=== PATIENT | female | born 2000 | race Caucasian/White ===

== ENCOUNTER 2022-05-06 18:43 | Observation (INO) | payer BC, SELFPAY ==
--- NOTE | ~2022-05-06 | US_ITS ---
EXAMINATION: US OB follow up DATE: 05/07/2022 07:32 INDICATION: Immature rupture of membranes. Assess amniotic fluid index. TECHNIQUE: Real-time ultrasound of the pelvis was performed. The interpreting radiologist was not pre sent for the study. COMPARISON: None. FINDINGS: There is a single living fetus in vertex presentation. The placenta is anterior. heart rate is 153 beats per minute (bpm). Amniotic fluid volume still appears subjectively normal. A formal amniot ic fluid index was not performed by the profile shaper operator. Measurements made on the transverse and images y ield an amniotic fluid index in the current study of 7.4 cm. Similar measurements made on the prior s tudy yield a corresponding amniotic fluid index of 12.0 cm. Cervical length measures 4.1 cm. IMPRESSION: 1. Single living fetus in vertex presentation with heart rate of 153 bpm. 2. Amniotic fluid appears both subjectively and quantitatively decreased with decrease in amniotic fl uid index from 12.0 cm to currently 7.4 cm (5th%-95%: 7.9-18.5 cm at 16 weeks estimated gestational a ge). Reviewed, dictated and finalized at location A. IMPRESSION: 1. Single living fetus in vertex presentation with heart rate of 153 bpm. 2. Amniotic fluid appears both subjectively and quantitatively decreased with d ecrease in amniotic fluid index from 12.0 cm to currently 7.4 cm (5th%-95%: 7.9 -18.5 cm at 16 weeks estimated gestational age).
--- NOTE | ~2022-05-06 | US_ITS ---
EXAMINATION: US OB follow up DATE: 05/06/2022 20:21 INDICATION: Spontaneous rupture of membranes at unknown gestational age. Assess viability, gest ational age and cervical length. TECHNIQUE: Real-time ultrasound of the pelvis was performed. The interpreting radiologist was not pre sent for the study. COMPARISON: None. FINDINGS: There is a single living fetus in variable presentation. The placenta is anterior. heart rate is 158 beats per minute (bpm). The amniotic fluid volume is subjectively normal. Cervical length kerrie ures 3.7 cm. The following biometric data were obtained: BPD: 3.1 cm -> 15 weeks 5 days Head circumference: 11.2 cm -> 15 weeks 3 days Abdominal circumference: 10.8 cm -> 16 weeks 5 days Femur length: 1.8 cm -> 15 weeks 3 days These measurements are concordant. Head circumference to abdominal circumference ratio: 1.03 (normal range 1.06-1.35). Estimated weight: 142 g (+/-) 21 g or 5 oz. (+/-) 1 oz. IMPRESSION: 1. Single living fetus in variable presentation with heart rate of 159 bpm. 2. Gestational age by ultrasound of 15 weeks 6 day(s) +/- 1 week(s) 1 day(s) with ultrasound estimate d date of delivery (HERMILA) of 10/22/2022. Please correlate with clinical information or earlier ultrasoun ds for most accurate HERMILA. 3. Subjectively normal amniotic fluid index and normal cervical length of 3.7 cm. 4. Head circumference to abdominal circumference ratio of 1.03 is slightly below the normal range of 1.06-1.35. Reviewed, dictated and finalized at location A. IMPRESSION: 1. Single living fetus in variable presentation with heart rate of 159 bp m. 2. Gestational age by ultrasound of 15 weeks 6 day(s) +/- 1 week(s) 1 day(s) wi th ultrasound estimated date of delivery (HERMILA) of 10/22/2022. Please correlate wi th clinical information or earlier ultrasounds for most accurate HERMILA. 3. Subjectively normal amniotic fluid index and normal cervical length of 3.7 c m. 4. Head circumference to abdominal circumference ratio of 1.03 is slightly belo w the normal range of 1.06-1.35.
[2022-05-06 18:08] VITALS: BP 155/91; PULSE 89; RESP 16; TEMP 36.6; O2SAT 100
--- NOTE | 2022-05-06 18:39 | PC.NURSE ---
patient evaluated by EDP and EDP requests that patient be taken directly to OB at this time for evaluation. OB contacted and patient taken to OB by wheelchair at this time.
--- NOTE | 2022-05-06 18:43 | OBADM ---
This patient, Mary Robins, admitted to the OB room OB Post 116 for observation. Patient/family oriented to hospital policies and general routines including ID bracelet, bed and alarms, visiting hours, pain management, procedures, bathroom and other care routines, personal items, smoking policy, room service/diet, and visiting hours. Patient/Family are encouraged to report perceived risks to care and to ask questions if they do not understand what they are told or what they should do.
--- NOTE | 2022-05-06 18:48 | ER_ITS ---
This report was moved to the correct visit on 05/10/22. Original report was signed by Naomi Paige MD 05/08/22 [id number]. HPI - General Adult General Chief complaint: Unspecified Stated complaint: OB Complications Time Seen by Provider: 05/06/22 18:09 History of Present Illness HPI narrative: Patient is a 21-year-old female at approximately 20 weeks gestation presenting with abdominal pressure. Patient states that her last period was a couple of months ago but she always has irregular periods. She was seen at another facility several weeks ago and told that she was between 15 and 20 weeks gestation. She has not followed up with ELEVATOR MECHANIC APPRENTICE since then. Today, she had some vaginal spotting followed by vaginal discharge. States that she is concerned that her water broke. States that she also has lower abdominal pressure. She has fevers, chest pain, shortness of breath, nausea or vomiting, dysuria, lightheadedness. Related Data Allergies Allergy/AdvReac Type Severity Reaction Status Date / Time No Known Allergies Allergy Verified 05/06/22 20:09 Review of Systems Review of Systems: All systems reviewed & are unremarkable except as noted in HPI and below Exam Narrative: GENERAL: Well-appearing, well-nourished, and in no acute distress. HEAD: Normocephalic, atraumatic. EYES: PERRLA and EOMI. ENT: Nares clear, no rhinorrhea or epistaxis. Mucous membranes moist. NECK: Supple. CHEST: Clear to auscultation. No respiratory distress. HEART: Regular rate and rhythm. No murmur heard. Normal peripheral pulses. ABDOMEN: Soft, nontender, nondistended, normal active bowel sounds. : no vaginal bleeding, cervix is closed on digital exam EXTREMITIES: Normal range of motion. No edema. SKIN: Warm, dry, no rash. NEURO: No focal deficits. Alert and oriented x3. PSYCH: Normal mood and affect. Course Course Emergency Course: Patient is a 21-year-old female at approximately 20 weeks gestation presenting with abdominal pressure and loss of fluids. Patient is hypertensive, otherwise vitals are within normal limits. Patient denies headache, vision changes, right upper quadrant pain. Bedside ultrasound reveals intrauterine fetus with positive cardiac activity. exam reveals a closed cervix. Concern for PPROM given her report of loss of fluids. Patient escorted to E[facility]ATOR MECHANIC APPRENTICE department for further management. Vital Signs Vital signs: Vital Signs Temperature 97.8 F 05/06/22 18:08 Pulse Rate 89 05/06/22 18:08 Respiratory Rate 16 05/06/22 18:08 Blood Pressure 155/91 H 05/06/22 18:08 Pulse Oximetry 100 05/06/22 18:08 Oxygen Delivery Room Air 05/06/22 18:08 Temperature 97.8 F 05/06/22 18:08 Pulse Rate 89 05/06/22 18:08 Respiratory Rate 16 05/06/22 18:08 Blood Pressure 155/91 H 05/06/22 18:08 Pulse Oximetry 100 05/06/22 18:08 Oxygen Delivery Room Air 05/06/22 18:08 Medical Decision Making Vital Signs Vital Signs: Vital Signs Temperature 97.8 F 05/06/22 18:08 Pulse Rate 89 05/06/22 18:08 Respiratory Rate 16 05/06/22 18:08 Blood Pressure 155/91 H 05/06/22 18:08 Pulse Oximetry 100 05/06/22 18:08 Oxygen Delivery Room Air 05/06/22 18:08 Temperature 97.8 F 05/06/22 18:08 Pulse Rate 89 05/06/22 18:08 Respiratory Rate 16 05/06/22 18:08 Blood Pressure 155/91 H 05/06/22 18:08 Pulse Oximetry 100 05/06/22 18:08 Oxy
[2022-05-06 18:52] VITALS: TEMP 36.7
--- NOTE | 2022-05-06 19:00 | PC.NURSE ---
FHT doppled at bedside 150's BPM
--- NOTE | 2022-05-06 19:12 | PC.NURSE ---
In wc to OB with ED RN.
[2022-05-06 19:16] VITALS: BP 104/60; PULSE 87
--- NOTE | 2022-05-06 19:23 | PC.NURSE ---
Updated Dr. Laguerre of patient arrival to OB unit with complaints of pelvic pressure and loss of clear colored fluid intermittently throughout the day. Patient states she has irregular periods and is unable to remember when her last period was. Patient reports an bedside ultrasound was performed at [facility] on 04/16/2022 to verify . Patient states that no due date was provided at that time and they states she was between 15-20 weeks . Patient states she is a with the first delivering at 39weeks. Patient denies any vaginal bleeding. Patient reports history of anxiety and psychosis resulting in hospitalization for self harm. Patient denies any thoughts of harm to herself or others at the present time. VSS. ROM plus was collected and positive for LOF. Orders received.
[2022-05-06 19:31] VITALS: BP 114/75; PULSE 96
[2022-05-06 19:33] LABS: Add Urine Microscopic? YES; Appearance Urine Cloudy (Clear); Bacteria Urine Trace /hpf; Bilirubin Urine Negative (Negative); Blood Urine Negative (Negative); Color Urine Yellow (Yellow); Glucose Urine UA Negative (Negative); Ketones Urine 1+ mg/dL (Negative); Leukocyte Esterase Ur 1+ LEU/UL (Negative); Mucus Urine Few /lpf; Nitrate Urine Negative (Negative); Protein Urine Negative (Negative); Squamous Epithelial Cell Urine Many /hpf (Few); Urobilinogen Urine Negative mg/dL (<2.0)
[2022-05-06 19:55] LABS: Basophils Percent Auto 0.4 % (0.2-1.2); Eosinophils Absolute Auto 0.1 K/mm3 (0-0.3); Eosinophils Percent Auto 0.9 % (0-4.4); Hemoglobin 12.8 g/dL (12.0-15.0); Immature Granulocyte Absolute 0.02 K/mm3 (0.00-0.031); Immature Granulocyte Percent A 0.2 % (0-0.5); Lymphocytes Absolute Auto 1.93 K/mm3 (0.9-3.2); Lymphocytes Percent Auto 23.7 % (18.3-44.2); Mean Corpuscular HGB Conc 34.6 g/dl (32-36); Mean Corpuscular Volume 86.9 fl (80-100); Mean Platelet Volume 10.8 fl (7.4-10.4); Monocytes Absolute Auto 0.4 K/mm3 (0.1-0.6); Monocytes Percent Auto 4.9 % (2.6-8.5); Neutrophils Absolute Auto 5.7 K/mm3 (1.3-6.7); Neutrophils Percent Auto 69.9 % (45.5-73.1); Platelet Count Result 265 k/mm3 (150-375); Red Blood Count 4.26 M/mm3 (4.2-5.4); Red Cell Distribution Width 13.4 % (11.5-14.5); White Blood Count 8.2 K/mm3 (4.5-10.0)
--- NOTE | 2022-05-06 19:58 | PC.NURSE ---
ultrasound at bedside performing ultrasound
[2022-05-06 20:00] VITALS: TEMP 36.8
[2022-05-06 20:10] LABS: Alanine Aminotransferase 23 U/L (6-35); Albumin Level 4.4 g/dL (3.5-5.1); Alkaline Phosphatase 50 U/L (38-126); Anion Gap 16 mmol/L (8-16); Aspartate Amino Transferase 24 U/L (14-36); Bilirubin,Total 0.6 mg/dL (0.2-1.3); Blood Urea Nitrogen 5 mg/dL (7-17); Calcium 9.3 mg/dL (8.4-10.2); Carbon Dioxide 21 mmol/L (22-30); Chloride 102 mmol/L (98-107); Estimated Glomerular Filt Rate > 60; Glucose 81 mg/dL (65-110); Potassium 3.5 mmol/L (3.4-5.0); Sodium 139 mmol/L (137-145)
--- NOTE | 2022-05-06 20:44 | PC.NURSE ---
Updated Dr. Laguerre on ultrasound results and lab results. Order to keep patient overnight and repeat STEFANI in the AM. Patient may be removed from monitors and may have regular diet.
[2022-05-06 20:51] LABS: HIV 1/2 Ab P24 Ag Result Negative (Negative)
[2022-05-06 20:55] LABS: Amphetamine Screen Urine Negative (Negative); Barbiturate Screen Urine Negative (Negative); Benzodiazepines Screen Urine Negative (Negative); Cannabinoid Screen Urine Negative (Negative); Cocaine Screen Urine Negative (Negative); Methadone Screen Urine Negative (Negative); Opiate Screen Urine Negative (Negative); Phencyclidine Screen Urine Negative (Negative)
[2022-05-06 21:17] LABS: Hepatitis B Surface Antigen Negative (Negative); Rubella IgG Antibody 3.2 IU/ML
[2022-05-07 07:49] VITALS: BP 87/49; PULSE 93
[2022-05-07 07:50] VITALS: BP 87/49; PULSE 86; PULSE 90; RESP 18; TEMP 36.7; O2SAT 100; BMI 34.3
[2022-05-07 07:51] VITALS: PULSE 90
[2022-05-07 07:55] VITALS: PULSE 79; O2SAT 100
--- NOTE | 2022-05-07 09:55 | PC.NURSE ---
Dr. Laguerre in to see and assess pt. Plan of care discussed.
--- NOTE | 2022-05-07 09:59 | PM.IMHP ---
H&P: HPI History of Present Illness Date/Time: 05/07/22 09:59 Chief Complaint: Leaking Narrative: 21 y/o with unknown LMP. She thinks she has had leakage since around 04/16. No care yet. She has been living in dorm at [facility]. She works with horses for a living. She is originally from [place]. This job lasted a few weeks longer than expected, but she plans to leave for [place] soon. She has no fevers, no vaginal bleeding. She has occasional low cramping, but nothing regular. Has a history of depression / anxiety, and psychosis. She stopped her meds when she found out she was - was on Trazodone, propranolol, fluoxetine and quetiapine. 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 In her successful she was induced at 39 weeks for elevated bp. She does not have custody of her child. RomPlus was positive here yesterday, and she has continued to have some leakage. Review of Systems Review of Systems: All systems reviewed & are unremarkable except as noted in HPI and below Meds Home Medications and Allergies Home Medications Medication Instructions Recorded Confirmed Type No Home Medications 05/06/22 05/06/22 History Allergies Allergy/AdvReac Type Severity Reaction Status Date / Time No Known Allergies Allergy Verified 05/06/22 20:09 Vital Signs Vital Signs - 24 hr 05/06/22 19:16 05/06/22 19:31 05/06/22 18:52 Temperature 36.7 C Pulse Rate 87 96 Respiratory Rate Blood Pressure 104/60 114/75 Pulse Oximetry Oxygen Delivery 05/06/22 20:00 05/07/22 07:49 05/07/22 07:50 Temperature 36.8 C Pulse Rate 93 Respiratory Rate Blood Pressure 87/49 L Pulse Oximetry 100 Oxygen Delivery 05/07/22 07:55 05/06/22 20:08 05/07/22 07:50 Temperature 36.7 C Pulse Rate 86 Respiratory Rate 18 Blood Pressure 87/49 L Pulse Oximetry 100 100 Oxygen Delivery Room Air 05/07/22 07:51 Temperature Pulse Rate 93 Respiratory Rate Blood Pressure 87/49 L Pulse Oximetry 100 Oxygen Delivery Exam Const: Orientation/consciousness: patient oriented x3 Other: Well-developed, well-nourished female in no acute distress. Neck: Thyroid: thyroid normal Lymphatic: no lymphadenopathy noted (in neck, axilla or inguinal nodes) Resp: Effort & Inspection: normal respiratory effort Auscultation: clear to auscultation bilaterally Cardio: Rate: regular rate Rhythm: regular rhythm Heart sounds: S1 normal heart sound present and S2 normal heart sound present GI: Other: ABD: Soft, nontender, nondistended. Uterine fundus palpated 3cm below umbilicus. FHR +. No guarding or rebound tenderness. No hepatosplenomegaly. : General: Yes no CVA tenderness Other: Deferred. Back/Spine/Pelvis: Back: no CVA tenderness Skin: General skin exam: normal color and no rashes or lesions noted Neuro: General: patient oriented x3 Extrem: Other: Extremities: nontender with no edema Psych: Mental Status: mental status grossly normal Affect: normal affect H&P: Results Labs Labs: Short CBC 05/06/22 Range/Units 19:31 WBC 8.2 (4.5-10.0) K/mm3 Hgb 12.8 (12.0-15.0) g/dL Hct 37.0 (37.0-47.0) % Plt Count 265 (150-375) k/mm3 BMP 05/06/22 19:31 Sodium 139 Potassium 3.5 Chloride 102 Carbon Dioxide 21 L BUN 5 L Creatinine 0.60 L Glucose 81 Calcium 9.3 Liver Function 05/06/22 Range/Units 19:31 Total Bilirubin 0.6 (0.2-1.3) mg/dL AST 24 (14-36) U/L ALT 23 (6-35) U/L Alkaline Phosphatase 50 (38-126) U/L Albumin 4.4 (3.5-5.1) g/dL Urine 05/06/22 Range/Units 19:17 Urine Color Yellow (Yellow) Urine Appearance Cloudy H (Clear) Urine pH 5.0 (5.0-9.0) Ur Specific [place] 1.020 (1.001-1.035) Urine Protein Negative (Negative) mg/dL Urine Glucose (UA) Negative (Negative) mg/dL Assessment and Plan Assessment and plan (1) premature r
[2022-05-07 10:54] VITALS: BP 104/52; PULSE 104; PULSE 105; PULSE 107; TEMP 36.6; O2SAT 100
--- NOTE | 2022-05-07 10:59 | PC.NURSE ---
Pt making phone calls to try to find a ride home.
--- NOTE | 2022-05-07 11:08 | PC.NURSE ---
Care coordination informed pt is unable to find a ride home.
--- NOTE | 2022-05-07 11:38 | PCCCNOTE ---
VM received from Bre in OB at [id number], called back to OB telma Díaz requesting cab voucher for patient as unable to find transportation, patient lives [facility] in [facility]. Met with patient at bedside and she details who she has called for rides with no success. Cab voucher provided to bedside RN Bre after patient confirmed address [place] dorm[place]. Bre also printed transportation resources per internet for patient. This care transition mgr encourages patient to call her insurance to see if she has a transportation benefit for doctor's appts. Patient verbalizes that she thinks that she may since she utilized after a previous hospitalization. Patient maybe relocating to [place] soon but this is unsure. Advised that insurance may have immigration case worker that could follow her telephonically to assist with health care education, support and also help with finding seafood team member or additional in network providers. Advised that she can call customer service on her insurance card to find out about transportation benefits and/or case management services. Patient verbalized understanding.
--- NOTE | 2022-05-07 11:43 | PC.NURSE ---
Transportation sheet from the Social Determinants of Health Resource List given to pt. Care coordination brought a taxi voucher for pt to use today. [employer] was called and will come in about 20 mins. Security desk informed to expect escort car driver and notify me when they arrive.
[2022-05-08 07:29] LABS: Rapid Plasma Reagin Non-Reactive (NonReactive)
--- NOTE | 2022-06-01 12:33 | PM.OBTRLD ---
OB - Triage/Final Diagnosis Visit Information Comments/Additional reasons for admission: I have assessed the risk for this patient, Mary Robins, and determined that she would benefit from observation care. Evaluation Laboratory results: Laboratory Tests 05/06/22 05/06/22 05/06/22 19:17 19:31 19:31 WBC 8.2 RBC 4.26 Hgb 12.8 Hct 37.0 MCV 86.9 MCH 30.0 MCHC 34.6 RDW 13.4 Plt Count 265 MPV 10.8 H Immature Gran % (Auto) 0.2 Neut % (Auto) 69.9 Lymph % (Auto) 23.7 Long % (Auto) 4.9 Eos % (Auto) 0.9 Baso % (Auto) 0.4 Lymph # (Auto) 1.93 Long # (Auto) 0.4 Eos # (Auto) 0.1 Baso # (Auto) 0.0 Abs Immat Gran (auto) 0.02 Absolute Neuts (auto) 5.7 Absolute Nucleated RBC 0.0 Nucleated RBC % 0.0 Sodium Potassium Chloride Carbon Dioxide Anion Gap BUN Creatinine Estim Creat Clear Calc Estimated GFR Glucose Calcium Total Bilirubin AST ALT Alkaline Phosphatase Total Protein Albumin Urine Color Yellow Urine Appearance Cloudy H Urine pH 5.0 Ur Specific [place] 1.020 Urine Protein Negative Urine Glucose (UA) Negative Urine Ketones 1+ H Ur Blood (Man) Negative Urine Nitrate Negative Urine Bilirubin Negative Urine Urobilinogen Negative Leukocyte Esterase Rfl 1+ H Urine RBC 3-5 H Urine WBC 10-15 H Ur Squamous Epith Cells Many H Urine Bacteria Trace Urine Mucus Few H Urine Opiates Screen Urine Methadone Screen Ur Barbiturates Screen Ur Phencyclidine Scrn Ur Amphetamine Screen U Benzodiazepines Scrn Urine Cocaine Screen U Cannabinoids Screen RPR Hep Bs Antigen Negative HIV 1&2 Ab/P24 Ag 4thGn Rubella IgG Antibody 3.2 L Blood Type Antibody Screen 05/06/22 05/06/22 05/06/22 19:31 19:31 19:31 WBC RBC Hgb Hct MCV MCH MCHC RDW Plt Count MPV Immature Gran % (Auto) Neut % (Auto) Lymph % (Auto) Long % (Auto) Eos % (Auto) Baso % (Auto) Lymph # (Auto) Long # (Auto) Eos # (Auto) Baso # (Auto) Abs Immat Gran (auto) Absolute Neuts (auto) Absolute Nucleated RBC Nucleated RBC % Sodium Potassium Chloride Carbon Dioxide Anion Gap BUN Creatinine Estim Creat Clear Calc Estimated GFR Glucose Calcium Total Bilirubin AST ALT Alkaline Phosphatase Total Protein Albumin Urine Color Urine Appearance Urine pH Ur Specific [place] Urine Protein Urine Glucose (UA) Urine Ketones Ur Blood (Man) Urine Nitrate Urine Bilirubin Urine Urobilinogen Leukocyte Esterase Rfl Urine RBC Urine WBC Ur Squamous Epith Cells Urine Bacteria Urine Mucus Urine Opiates Screen Urine Methadone Screen Ur Barbiturates Screen Ur Phencyclidine Scrn Ur Amphetamine Screen U Benzodiazepines Scrn Urine Cocaine Screen U Cannabinoids Screen RPR Non-reactive Hep Bs Antigen HIV 1&2 Ab/P24 Ag 4thGn Negative Rubella IgG Antibody Blood Type B Positive Antibody Screen Negative 05/06/22 05/06/22 19:31 20:31 WBC RBC Hgb Hct MCV MCH MCHC RDW Plt Count MPV Immature Gran % (Auto) Neut % (Auto) Lymph % (Auto) Long % (Auto) Eos % (Auto) Baso % (Auto) Lymph # (Auto) Long # (Auto) Eos # (Auto) Baso # (Auto) Abs Immat Gran (auto) Absolute Neuts (auto) Absolute Nucleated RBC Nucleated RBC % Sodium 139 Potassium 3.5 Chloride 102 Carbon Dioxide 21 L Anion Gap 16 BUN 5 L Creatinine 0.60 L Estim Creat Clear Calc Not Reportable Estimated GFR > 60 Glucose 81 Calcium 9.3 Total Bilirubin 0.6 AST 24 ALT 23 Alkaline Phosphatase 50 Total Protein 8.0 Albumin 4.4 Urine Color Urine Appearance Urine pH Ur Specific Grav
--- NOTE | 2022-06-16 11:45 | PC.NURSE ---
LATE ENTRY This note is being entered to document information to the patient's record. The following information was omitted on [05/06/22], by [My Obrien RN]. {Patient evaluated by EDP and EDP requests that patient be taken directly to OB at this time for evaluation. OB contacted and patient taken to OB by wheelchair at this time.
== END 2022-05-07 11:57 | disposition home or self-care (01) ==
PROVIDERS: Admitting Provider Obstetrics & Gynecology; Visit Provider Obstetrics & Gynecology
DX: O42.112 Preterm premature rupture of membranes, onset of labor more than 24 hours following rupture, second trimester (principal); O26.22 Pregnancy care for patient with recurrent pregnancy loss, second trimester; F41.8 Other specified anxiety disorders; Z86.59 Personal history of other mental and behavioral disorders; Z11.4 Encounter for screening for human immunodeficiency virus [HIV]; Z3A.16 16 weeks gestation of pregnancy
CPT/HCPCS: 36415; 76816; 80053; 80307; 81001; 84112; 85025; 86592; 86703; 86762; 86850; 86900; 86901; 87086; 87088; 87340; 99282; G0378; G0379; G0432

== ENCOUNTER 2022-05-09 17:37 | Emergency (ER) | payer BC, SELFPAY ==
--- NOTE | ~2022-05-09 | XR_ITS ---
XR chest 1V portable DATE: 05/09/2022 18:35 INDICATION: Syncope. Cramping. 16 weeks . TECHNIQUE: Portable upright AP chest on 05/09/2022 at 1829 hours COMPARISON: None FINDINGS: Normal heart size. No hilar or mediastinal enlargement. No pulmonary infiltrate or consolid ation, pleural effusion or pulmonary vascular congestion or pneumothorax. Included skeletal structure s are normal. IMPRESSION: Negative Reviewed, dictated and finalized at location A. IMPRESSION: Negative
--- NOTE | ~2022-05-09 | US_ITS ---
US OB limited DATE: 05/09/2022 18:09 INDICATION: Premature rupture of membranes at 16 weeks TECHNIQUE: Real-time imaging and Doppler analysis COMPARISON: 05/07/2022 and 05/06/2022 obstetrical ultrasound examinations FINDINGS: Live rojas intrauterine gestation, fetus in longitudinal lie, vertex presentation. Feta l heart rate of 157 bpm. Anterior placenta. Amniotic fluid index measures 6.3 cm, below the 5th percentile of 7.9 cm. IMPRESSION: Oligohydramnios; clinical history of premature rupture of membranes Reviewed, dictated and finalized at Location A. Reviewed, dictated and finalized at location A.
[2022-05-09 17:38] VITALS: BP 110/73; PULSE 89; RESP 16; TEMP 37; O2SAT 96
--- NOTE | 2022-05-09 18:00 | ED.ABDPAIN ---
HPI - Abdominal Pain General Chief Complaint: Abdominal Pain <STEFANIA Juárez Last Filed: 05/09/22 20:17> Stated Complaint: ABD PAIN , AMNIOTIC LEAKAGE 16 WEEK PREG <STEFANIA Juárez Last Filed: 05/09/22 20:17> Time Seen by Provider: 05/09/22 17:41 <STEFANIA Juárez Last Filed: 05/09/22 20:17> Source: patient <STEFANIA Juárez Last Filed: 05/09/22 20:17> Mode of arrival: ambulatory <STEFANIA Juárez Last Filed: 05/09/22 20:17> Limitations: no limitations <STEFANIA Juárez Last Filed: 05/09/22 20:17> History of Present Illness HPI narrative: This is a 21 year old , about 16 weeks . Reports she has been having abdominal pain and cramping ongoing for weeks. Reports the pain worsened today which prompted her to be seen. She has seen Dr. Laguerre and was found to have premature rupture of membranes. Reports she was having spotting earlier today. She also reports while in the bathroom earlier today she was hacing some cramping and passed out. She is unsure if she hit her head. Reports history of similar syncopal events. Denies fever, chest pain, shortness of breath or vomiting. <Laura Lawler PA-C - Last Filed: 05/09/22 20:17> Related Data Allergies/Adverse Reactions: Allergies Allergy/AdvReac Type Severity Reaction Status Date / Time No Known Allergies Allergy Verified 05/09/22 17:43 <STEFANIA Juárez Last Filed: 05/09/22 20:17> Review of Systems Review of Systems: CONSTITUTIONAL: Denies fever GASTROINTESTINAL: Reports abdominal pain. Denies nausea, vomiting GENITOURINARY: Denies dysuria <STEFANIA Juárez Last Filed: 05/09/22 20:17> All systems reviewed & are unremarkable except as noted in HPI and below <STEFANIA Juárez Last Filed: 05/09/22 20:17> [facility] Past Medical History Medical History: Medical History (Updated 05/10/22 @ 00:00 by Carrillo Murray) History of anxiety History of depression <Laura Lawler PA-C - Last Filed: 05/09/22 20:17> Surgical History Surgical History: Surgical History (Updated 05/09/22 @ 18:03 by Laura Lawler PA-C) History of cholecystectomy <Laura Lawler PA-C - Last Filed: 05/09/22 20:17> Social History Social History: Social History (Updated 05/09/22 @ 18:03 by Laura Lawlre PA-C) Smoking status: Never smoker Alcohol intake: never Substance use: never <Laura Lawler PA-C - Last Filed: 05/09/22 20:17> Exam Narrative: GENERAL: Well-appearing, well-nourished, and in no acute distress. HEAD: Normocephalic, atraumatic. EYES: PERRLA and EOMI. CHEST: Clear to auscultation. No respiratory distress. No wheezes rales or rhonchi HEART: Regular rate and rhythm. No murmur heard. Normal peripheral pulses. ABDOMEN: Soft, nontender, nondistended, normal active bowel sounds. EXTREMITIES: Normal range of motion. No edema. SKIN: Warm, dry, no rash. NEURO: No focal deficits. Alert and oriented x3. Cranial nerves II through XII grossly intact PSYCH: Normal mood and affect <Laura Lawler PA-C - Last Filed: 05/09/22 20:17> Course SPECIAL CLASS WELDER/[place] Physician Supervision For this encounter, I have reviewed the mid-level provider documentation, treatment plan and medical decision making. I have had [id number] time with the patient. Physical exam the patient is well-appearing in no distress. She has no abdominal tenderness. Ultrasounds were ordered to evaluate fetus and they revealed a live intrauterine with oligohydramnios which is consistent with a premature rupture of membranes. She is well connected with Dr. Laguerre and will follow-up with him on an outpatient basis. <Kings Berumen MD - Last Filed: 05/13/22 07:20> Consultations Consultation #1: Spoke with Dr. Hulsen about patient and workup. Patient is to follow up in clinic in the next day or two <Laura Lawler PA-C - Last Filed: 05/09/22 20:17> Date:
--- NOTE | 2022-05-09 18:06 | ECG_ITS ---
Measurements Intervals [place] Rate: 73 P: 33 NE: 168 QRS: 67 QRSD: 82 T: -3 QT: 350 QTc: 387 Interpretive Statements SINUS RHYTHM NONSPECIFIC T-WAVE ABNORMALITY NO PREVIOUS ECG AVAILABLE FOR COMPARISON Electronically Signed On 05-10-2022 13:06:53 CDT by Clifford Greene M.D.
[2022-05-09 18:24] LABS: Basophils Percent Auto 0.2 % (0.2-1.2); Eosinophils Absolute Auto 0.1 K/mm3 (0-0.3); Eosinophils Percent Auto 0.9 % (0-4.4); Hematocrit 35.3 % (37.0-47.0); Hemoglobin 12.3 g/dL (12.0-15.0); Immature Granulocyte Absolute 0.03 K/mm3 (0.00-0.031); Immature Granulocyte Percent A 0.4 % (0-0.5); Lymphocytes Absolute Auto 1.47 K/mm3 (0.9-3.2); Lymphocytes Percent Auto 18.2 % (18.3-44.2); Mean Corpuscular HGB Conc 34.8 g/dl (32-36); Mean Corpuscular Hemoglobin 30.4 pg (26-34); Mean Corpuscular Volume 87.2 fl (80-100); Mean Platelet Volume 11.1 fl (7.4-10.4); Monocytes Absolute Auto 0.3 K/mm3 (0.1-0.6); Monocytes Percent Auto 3.7 % (2.6-8.5); Neutrophils Absolute Auto 6.2 K/mm3 (1.3-6.7); Neutrophils Percent Auto 76.6 % (45.5-73.1); Platelet Count Result 244 k/mm3 (150-375); Red Blood Count 4.05 M/mm3 (4.2-5.4); Red Cell Distribution Width 13.5 % (11.5-14.5); White Blood Count 8.1 K/mm3 (4.5-10.0)
[2022-05-09 18:34] LABS: Alanine Aminotransferase 22 U/L (6-35); Albumin Level 4.1 g/dL (3.5-5.1); Alkaline Phosphatase 47 U/L (38-126); Anion Gap 11 mmol/L (8-16); Aspartate Amino Transferase 21 U/L (14-36); Bilirubin,Total 0.5 mg/dL (0.2-1.3); Blood Urea Nitrogen 6 mg/dL (7-17); Calcium 8.7 mg/dL (8.4-10.2); Carbon Dioxide 24 mmol/L (22-30); Chloride 102 mmol/L (98-107); Estimated CRCL calculation 148 ml/min; Estimated Glomerular Filt Rate > 60; Glucose 81 mg/dL (65-110); Lipase 53 U/L (23-300); Potassium 3.7 mmol/L (3.4-5.0); Sodium 137 mmol/L (137-145)
[2022-05-09 19:00] VITALS: BP 128/70; PULSE 74; RESP 16; TEMP 36.8; O2SAT 100
[2022-05-09 19:22] LABS: Add Urine Microscopic? YES; Appearance Urine Cloudy (Clear); Bilirubin Urine Negative (Negative); Blood Urine Negative (Negative); Color Urine Amber (Yellow); Glucose Urine UA Negative (Negative); Ketones Urine 1+ mg/dL (Negative); Leukocyte Esterase Ur 3+ LEU/UL (Negative); Mucus Urine Heavy /lpf; Nitrate Urine Negative (Negative); Protein Urine 1+ mg/dL (Negative); Specific Grav Ur 1.028 (1.001-1.035); Squamous Epithelial Cell Urine Many /hpf (Few); Urobilinogen Urine Negative mg/dL (<2.0)
[2022-05-09 20:00] VITALS: BP 119/80; PULSE 82; RESP 16; TEMP 36.8; O2SAT 100
[2022-05-09 20:14] LABS: Troponin I < 0.012 ng/mL (0.000-0.034)
== END 2022-05-09 20:29 | disposition home or self-care (01) ==
PROVIDERS: Physician Assistant; Emergency Provider Emergency Medicine
DX: O42.912 Preterm premature rupture of membranes, unspecified as to length of time between rupture and onset of labor, second trimester (principal); O23.12 Infections of bladder in pregnancy, second trimester; N30.00 Acute cystitis without hematuria; Z3A.16 16 weeks gestation of pregnancy; R94.31 Abnormal electrocardiogram [ECG] [EKG]
CPT/HCPCS: 36415; 71045; 76815; 80053; 81001; 83690; 84484; 85025; 85461; 87086; 87088; 87147; 93005; 96365; 96367; 99284; J0131; J0696

== ENCOUNTER 2022-08-29 17:55 | Observation (INO) | payer BC, SELFPAY ==
--- NOTE | 2022-08-29 18:30 | OBADM ---
This patient, Mary Robins, admitted to the OB room OB Post 115 for observation. Patient/family oriented to hospital policies and general routines including ID bracelet, bed and alarms, visiting hours, pain management, procedures, bathroom and other care routines, personal items, smoking policy, room service/diet, and visiting hours. Patient/Family are encouraged to report perceived risks to care and to ask questions if they do not understand what they are told or what they should do.
[2022-08-29 18:31] VITALS: BP 122/66; PULSE 93
--- NOTE | 2022-08-29 19:25 | PC.NURSE ---
Dr Guardado notified of adm c/o contractions and spotting, no spotting noted on adm or during collection of the ROM PLUS, negative ROM plus. Hx of no care other than a few hospital visits, recent travel that has prevent her for seeking care and that patient thought with her water being broke that she would not continue to carry the . Informed that only a rare contraction was noted and that FHT's are reactive. OK to dc home and encourage patient to follow up and call office for an appt.
[2022-08-29 19:31] LABS: Appearance Urine Slightly Cloudy (Clear); Bilirubin Urine 1+ (Negative); Blood Urine 3+ (Negative); Color Urine Yellow (Yellow); Glucose Urine UA Negative (Negative); Ketones Urine Negative (Negative); Leukocyte Esterase Ur Negative LEU/UL (NEGATIVE); Nitrate Urine Negative (Negative); Protein Urine 1+ mg/dL (Negative); Specific Grav Ur >= 1.030 (1.001-1.035); Urobilinogen Urine 0.2 mg/dL (<2.0)
[2022-08-29 19:44] LABS: Bacteria Urine Trace /hpf; Mucus Urine Few /lpf; RBC Urine >75 /hpf (0-2); Squamous Epithelial Cell Urine Moderate /hpf (Few); WBC Urine 0-3 /hpf (0-3)
[2022-08-29 19:54] LABS: Add Urine Microscopic? YES
--- NOTE | 2022-09-02 11:40 | PM.OBTRLD ---
OB - Triage/Final Diagnosis Visit Information Reason for evaluation: other ( abdominal cramping and spotting) Comments/Additional reasons for admission: I have assessed the risk for this patient, Mary Robins, and determined that she would benefit from observation care. Evaluation Laboratory results: Laboratory Tests 08/29/22 18:59 Urine Color Yellow Urine Appearance Slightly cloudy Urine pH 6.0 Ur Specific [place] >= 1.030 Urine Protein 1+ H Urine Glucose (UA) Negative Urine Ketones Negative Ur Blood (Man) 3+ H Urine Nitrate Negative Urine Bilirubin 1+ H Urine Urobilinogen 0.2 Ur Leukocyte Esterase Negative Urine RBC >75 H Urine WBC 0-3 Ur Squamous Epith Cells Moderate H Urine Bacteria Trace Urine Mucus Few H
== END 2022-08-29 19:52 | disposition home or self-care (01) ==
PROVIDERS: Admitting Provider Obstetrics & Gynecology Gynecology; Visit Provider Obstetrics & Gynecology Gynecology
DX: O26.893 Other specified pregnancy related conditions, third trimester (principal); R10.9 Unspecified abdominal pain; O26.853 Spotting complicating pregnancy, third trimester; Z3A.32 32 weeks gestation of pregnancy
CPT/HCPCS: 81001; 84112; 87086; G0378; G0379

== ENCOUNTER 2022-10-27 19:28 | Inpatient (IN) | payer BC, SELFPAY ==
[2022-10-27] VITALS (56 sets, daily range): BP systolic 76–125; BP diastolic 17–90; PULSE 62–279; O2SAT 95–100; BMI 39.4
--- NOTE | 2022-10-27 21:21 | P.PNAN_ITS ---
Anes - Eval Pre Procedure Procedure: labor epidural Date/Time: 10/27/22 21:21 Surgeon: ramon Preop Diagnosis: pain during labor Pre Op Diagnosis: labor Patient Data Age: 22 Gender: F Height: Weight: Last Vital Signs Pulse 76 10/27/22 21:15 BP 120/71 10/27/22 21:15 Allergies Allergy/AdvReac Type Severity Reaction Status Date / Time No Known Allergies Allergy Verified 05/09/22 17:43 Home Medications Medication Instructions Recorded Confirmed Type vit no.95-ferrous 1 tablet PO DAILY #30 tabs 05/07/22 Rx fumarate 28 mg-folic acid 800 mcg tablet () Patient hx anesthesia problems: none Family hx anesthesia problems: none Results Review: All pre-operative results and documents have been reviewed as part of the pre- operative evaluation. [facility] Past Medical History Medical History (Updated 10/27/22 @ 21:22 by Riddhi Pompa CRNA) History of anxiety History of depression IUP (intrauterine ), incidental Surgical History Surgical History (Updated 05/09/22 @ 18:03 by Laura Lawler PA-C) History of cholecystectomy Social History Social History (Updated 05/09/22 @ 18:03 by Laura Lawler PA-C) Smoking status: Never smoker Alcohol intake: never Substance use: never Exam Day of Procedure 10/27/22 21:21
[2022-10-27] MEDS: LACTATED RINGERS 1,000 ML 125 ML IV CONT (21:45)
[2022-10-27] MEDS: AMPICILLIN 2 GM/NS 100 ML 2 GM/100 ML BAG IVPB (21:50)
[2022-10-27 21:56] LABS: Basophils Percent Auto 0.3 % (0.2-1.2); Eosinophils Percent Auto 0.3 % (0-4.4); Hematocrit 35.7 % (37.0-47.0); Hemoglobin 12.1 g/dL (12.0-15.0); Immature Granulocyte Absolute 0.05 K/mm3 (0.00-0.031); Immature Granulocyte Percent A 0.4 % (0-0.5); Lymphocytes Absolute Auto 1.88 K/mm3 (0.9-3.2); Lymphocytes Percent Auto 15.6 % (18.3-44.2); Mean Corpuscular HGB Conc 33.9 g/dl (32-36); Mean Corpuscular Hemoglobin 29.3 pg (26-34); Mean Corpuscular Volume 86.4 fl (80-100); Mean Platelet Volume 10.9 fl (7.4-10.4); Monocytes Absolute Auto 0.5 K/mm3 (0.1-0.6); Monocytes Percent Auto 3.7 % (2.6-8.5); Neutrophils Absolute Auto 9.6 K/mm3 (1.3-6.7); Neutrophils Percent Auto 79.7 % (45.5-73.1); Platelet Count Result 282 k/mm3 (150-375); Red Blood Count 4.13 M/mm3 (4.2-5.4); White Blood Count 12.1 K/mm3 (4.5-10.0)
--- NOTE | 2022-10-27 22:01 | P.HP_ITS ---
H&P: HPI History of Present Illness Date/Time: 10/27/22 22:01 Chief Complaint: Labor Narrative: the is a 22-year-old 7 para 1 who with very poor to no care who is admitted in active labor. According to her last menstrual. She believes she is 40-,1/2 weeks gestation. Cervix is 5+ cm she is admitted in active labor. Group B strep prophylaxis undertaken as it is unknown and drug screen is pending. She does not plan to keep this baby [facility] Past Medical History Medical History (Updated 10/27/22 @ 22:03 by John Herrmann MD) History of anxiety History of depression IUP (intrauterine ), incidental Surgical History Surgical History (Updated 05/09/22 @ 18:03 by Laura Lawler PA-C) History of cholecystectomy Social History Social History (Updated 05/09/22 @ 18:03 by Laura Lawler PA-C) Smoking status: Never smoker Alcohol intake: never Substance use: never Meds Home Medications and Allergies Home Medications Medication Instructions Recorded Confirmed Type vit no.95-ferrous 1 tablet PO DAILY #30 tabs 05/07/22 Rx fumarate 28 mg-folic acid 800 mcg tablet () Allergies Allergy/AdvReac Type Severity Reaction Status Date / Time No Known Allergies Allergy Verified 05/09/22 17:43 Vital Signs Vital Signs - 24 hr 10/27/22 20:45 10/27/22 21:00 10/27/22 21:15 Pulse Rate 81 72 76 Blood Pressure 119/80 110/66 120/71 Pulse Oximetry 10/27/22 21:31 10/27/22 21:57 10/27/22 22:00 Pulse Rate 125 H 72 Blood Pressure 102/17 L 125/80 Pulse Oximetry 99 Exam Const: General: cooperative, healthy appearing and comfortable Nutritional Appearance: overweight HENMT: Head: normal to inspection Chest: Chest palpation & inspection: normal inspection of the chest Resp: Effort & Inspection: normal respiratory effort Cardio: Rate: regular rate Rhythm: regular rhythm Heart sounds: S1 normal heart sound present and S2 normal heart sound present GI: Inspection: normal to inspection Auscultation: normal bowel sounds : Speculum Exam - Cervix: normal appearance of the cervix ( cervix 5cm. Contractions irregular. FHTs reassuring) Assessment and Plan Assessment and plan (1) IUP (intrauterine ), incidental: Code(s): Z33.1 - state, incidental Status: Acute (2) No care in current : Code(s): O09.30 - Supervision of with insufficient care, unspecified trimester Status: Acute Plan spontaneous vaginal delivery is expected. Epidural is being placed. Group B strep prophylaxis is undertaken as status is unknown. player services representative will be consulted
[2022-10-27 22:11] LABS: Alanine Aminotransferase 11 U/L (6-35); Albumin Level 4.2 g/dL (3.5-5.1); Alkaline Phosphatase 196 U/L (38-126); Anion Gap 10 mmol/L (8-16); Aspartate Amino Transferase 20 U/L (14-36); Bilirubin,Total 0.8 mg/dL (0.2-1.3); Blood Urea Nitrogen 6 mg/dL (7-17); Calcium 9.3 mg/dL (8.4-10.2); Carbon Dioxide 20 mmol/L (22-30); Chloride 103 mmol/L (98-107); Estimated Glomerular Filt Rate > 60; Glucose 80 mg/dL (65-110); Potassium 4.2 mmol/L (3.4-5.0); Sodium 133 mmol/L (137-145)
[2022-10-27 22:51] LABS: HIV 1/2 Ab P24 Ag Result Negative (Negative)
[2022-10-28] VITALS (18 sets, daily range): BP systolic 101–130; BP diastolic 46–81; PULSE 58–149; RESP 16; TEMP 36.8–37; O2SAT 75–100
[2022-10-28] MEDS: OXYTOCIN 30 UNITS/NS 500 ML 30 UNITS/500 ML BAG 999 UNITS IV CONT (00:41)
--- NOTE | 2022-10-28 00:56 | PM.OBPRVD ---
OB - Delivery Note Procedure Delivery date: 10/28/22 Events: Positive Group B Strep (GBS) Induction method: None Delivery monitor: External FHT Route of delivery: Laceration Description: None Quantitative Blood Loss (ml): 60 Anesthesia type: Epidural Disposition: Floor Baby Date of : 10/28/22 Time of : 00:29 Weeks of gestation at delivery: 40 gender: Male Weight (pounds): 6 Weight (ounces): 5 presentation: vertex position: Right Occiput Anterior Placenta delivery description: Spontaneous Cord Vessel Description: 3 Vessels score one minute: 9 score five minutes: 9 Narrative: amp x 1
[2022-10-28] MEDS: OXYTOCIN 30 UNITS/NS 500 ML 30 UNITS/500 ML BAG 125 UNITS IV CONT (01:15)
--- NOTE | 2022-10-28 02:56 | LDADM ---
This patient, Mary Robins, was admitted to Labor/Delivery/Recovery 106 on 10/27/22 at 19:28. Plans for labor, pain management and were discussed with patient. Patient/family oriented to hospital policies and general routines including ID bracelet, bed and alarms, visiting hours, pain management, procedures, bathroom and other care routines, personal items, smoking policy, room service/diet and guest tray routines, infant security routines, and visiting hours. Patient/Family are encouraged to report perceived risks to care and to ask questions if they do not understand what they are told or what they should do. See OBIX for further documentation.
[2022-10-28 04:15] LABS: Amphetamine Screen Urine Negative (Negative); Barbiturate Screen Urine Negative (Negative); Benzodiazepines Screen Urine Negative (Negative); Cannabinoid Screen Urine Negative (Negative); Cocaine Screen Urine Negative (Negative); Methadone Screen Urine Negative (Negative); Opiate Screen Urine Negative (Negative); Phencyclidine Screen Urine Negative (Negative)
[2022-10-28] MEDS: IBUPROFEN 600 MG TABLET PO (04:25)
[2022-10-28] MEDS: BENZOCAINE 20% AER SPR (*SP) 56 GM CAN 1 SPRAY TOPICAL (04:30)
[2022-10-28] MEDS: ACETAMINOPHEN 325 MG TABLET 650 MG PO (06:51)
--- NOTE | 2022-10-28 08:39 | PM.DS ---
DS: Admitting Diagnosis Discharge Date 10/28/2022 Admitting Diagnosis Suspected term in active labor with no care DS: Discharge Diagnosis Discharge Diagnosis (1) No care in current : Code(s): O09.30 - Supervision of with insufficient care, unspecified trimester Status: Acute DS: Summary Hospital Course Reason for hospitalization: patient was admitted in active labor Hospital Course: patient was admitted in active labor 10/27/2022. She under to a spontaneous vaginal delivery male infant which was unremarkable group B strep status unknown and she was prophylaxed x1. She presently plans to adopt the baby out however the prospective father the baby may be interested in adopting baby but DNA is not known. Hospital course was otherwise unremarkable she remained afebrile. She was up, voiding without difficulty, ambulating, and generally appeared to be and mentally and socially stable. She expressed interest in the Nexplanon but is willing to undertake Depo-Provera prior to leaving until that is possible. She will also be started on Zoloft 50mg a she has been on mood stabilizing medicines before the past. Also voiding personal caregiver 20 Xanax to cover for her anxiety disorder. Time Spent with Patient Time attestation: Total time spent providing and/or coordinating discharge services: Exam Const: General: cooperative, healthy appearing, comfortable and overweight Orientation/consciousness: oriented to person, oriented to place and oriented to time Resp: Effort & Inspection: normal respiratory effort Cardio: Rate: regular rate Rhythm: regular rhythm Heart sounds: S1 normal heart sound present and S2 normal heart sound present GI: Inspection: normal to inspection DS: Data Data Completed and Pending Labs on day of discharge: Labs from last 24 hours 10/28/22 10/27/22 10/27/22 03:30 21:51 21:51 WBC RBC Hgb Hct MCV MCH MCHC RDW Plt Count MPV Immature Gran % (Auto) Neut % (Auto) Lymph % (Auto) Ramsey % (Auto) Eos % (Auto) Baso % (Auto) Lymph # (Auto) Ramsey # (Auto) Eos # (Auto) Baso # (Auto) Abs Immat Gran (auto) Absolute Neuts (auto) Absolute Nucleated RBC Nucleated RBC % Sodium 133 L Potassium 4.2 Chloride 103 Carbon Dioxide 20 L Anion Gap 10 BUN 6 L Creatinine 0.50 L Estim Creat Clear Calc Not Reportable Estimated GFR > 60 Glucose 80 Calcium 9.3 Total Bilirubin 0.8 AST 20 ALT 11 Alkaline Phosphatase 196 H Total Protein 8.0 Albumin 4.2 Urine Opiates Screen Negative Urine Methadone Screen Negative Ur Barbiturates Screen Negative Ur Phencyclidine Scrn Negative Ur Amphetamine Screen Negative U Benzodiazepines Scrn Negative Urine Cocaine Screen Negative U Cannabinoids Screen Negative HIV 1&2 Ab/P24 Ag 4thGn Rubella IgG Antibody Blood Type B Positive Antibody Screen Negative 10/27/22 10/27/22 10/27/22 21:51 21:51 21:51 WBC 12.1 H RBC 4.13 L Hgb 12.1 Hct 35.7 L MCV 86.4 MCH 29.3 MCHC 33.9 RDW 14.0 Plt Count 282 MPV 10.9 H Immature Gran % (Auto) 0.4 Neut % (Auto) 79.7 H Lymph % (Auto) 15.6 L Ramsey % (Auto) 3.7 Eos % (Auto) 0.3 Baso % (Auto) 0.3 Lymph # (Auto) 1.88 Ramsey # (Auto) 0.5 Eos # (Auto) 0.0 Baso # (Auto) 0.0 Abs Immat Gran (auto) 0.05 H Absolute Neuts (auto) 9.6 H Absolute Nucleated RBC 0.0 Nucleated RBC % 0.0 Sodium Potassium Chloride Carbon Dioxide Anion Gap BUN Creatinine Estim Creat Clear Calc Estimated GFR Glucose Calcium Total Bilirubin AST ALT Alkaline Phosphatase Total Protein Albumin Urine Opiates Screen Urine Methadone Screen Ur Barbiturates Screen Ur Phencyclidine Scrn Ur Amphetamine Screen U Benzodi
[2022-10-28] MEDS: medroxyPROGESTERone ACETATE IM 150 MG/ML SYR IM (09:56)
[2022-10-28] MEDS: SERTRALINE HCL 50 MG TABLET PO (09:56)
--- NOTE | 2022-10-28 16:14 | PCCCNOTE ---
Addendum entered by NANCY Savage 10/30/22 08:48: MIMA Spence reports baby is medically ready for discharge today. Spoke with Jasmin Stack ([phone]), with [facility]option [facility], to notify of this, and Jasmin pascual will arrive to [facility] around 11:00 to complete discharge paperwork and sign the Authorization to Release Infant form that is on baby's chart. RN aware. Original Note: Care Coordination: Recvd referral stating open DCFS case; baby for adoption. Met with pt. who explains: Pt. denies having an open DCFS case. Pt. reports having a two year old daughter who her parents are caring for. Pt. reports her parents are in process of legally adopting pt's daughter. Pt. reports about one year after delivering her daughter, pt. had severe thoughts of self-harm and depression. Pt. checked herself into [facility] for a one week stay for psych treatment. During that inpatient treatment(November 2021), pt's parents were caring for her daughter. After pt. discharged from psych facility, pt. asked parents to continue caring for her daughter due to safety concerns for her daughter being in her own care. Pt's parents and daughter all live in [place], where pt. is originally from. Pt. lives in [place] at the [employer], where pt. also works. Pt. reports feeling safe in her home. Pt. moved to [place] when she became and reports her parents do not know that pt. was with this new baby. Pt. doesn't want her parents to know. Pt. reports FOB is not involved. Pt's UDS was Negative. Pt. requests to put her up for adoption and states she does not have a preference which adoption agency to work with. DCFS report was made due to RN reporting open DCFS case - Intake Report # [id number]. DCFS worker, Tamela Bernal, met with pt. at bedside and reports no action being taken and able to proceed with adoption process. CC spoke with Jasmin Stack(ph: [phone]), with [facility](ph: [phone]). Jasmin Stack met with pt. at bedside and completed all necessary adoption paperwork with pt. JOANA completed the Authorization to Release form with pt., and placed form on baby boy's chart. RN and Jasmin Stack aware that the form needs finalized on day of discharge of baby boy, which RN reports likely be Sunday10/30/22. Jasmin Stack aware of anticipated discharge date. Pt. asked to be discharged today. CC provided pt. with a cab voucher. Counseling resources provided to pt. Pt. denies further needs.
[2022-10-28 22:00] LABS: Rubella IgG Antibody 2.6 IU/ML
--- OUTSIDE RECORDS SUMMARY | 2022-11-08 04:45 | XMS_ITS ---
Author Name Unknown Organization [facility] l Address Unknown Care Team Providers Care Miller Head Assistant Wet Process Name Role Phone Registration, No Family Phys Primary Care Physic jagruti Unavailable Encounter Date(s): 07/24/19 - 07/24/19 [facility] [address] [place], [place] [address] Discharge Disposition: Home or Self Care Attending Physician: Paulette Currie MD (Emergency Medicine) Reason for Visit Ankle injury Vital Signs Most recent to oldest [Reference Range]: 1 2 Preferred Pain Tool Numeric rating scale (07/24/19 11:04 AM) Temperature Oral [35.8-37.3 DegC] 37 Deg C (07/24/19 11:04 AM) Peripheral Pulse Rate [60-100 bpm] 78 bp m (07/24/19 12:16 PM) 84 bpm (07/24/19 11:04 AM) Respiratory Rate [14-20 br/min] 18 br/mi n (07/24/19 12:16 PM) 20 br/min (07/24/19 11:04 AM) Blood Pressure [90-140/60-90 mmHg] 122/7 0mmHg (07/24/19 12:16 PM) 127/66mmHg (07/24/19 11:04 AM) Problem List No Known Problems Allergies, Adverse Reactions, Alerts No Known Allergies Medications No Known Medications Social History Social History Type Response
== END 2022-10-28 17:20 | disposition home or self-care (01) | DRG 807 ==
LOC: ANHLDR 20:45 → ANHOB2 10-28 04:21
PROVIDERS: Admitting Provider Obstetrics & Gynecology; Visit Provider Obstetrics & Gynecology
DX: O99.824 Streptococcus B carrier state complicating childbirth (principal); Z37.0 Single live birth; O99.344 Other mental disorders complicating childbirth; F41.9 Anxiety disorder, unspecified; Z3A.40 40 weeks gestation of pregnancy
CPT/HCPCS: 36415; 80053; 80307; 85025; 86703; 86762; 86850; 86900; 86901; A9270; G0432; J0290; J1050; J2590; J2795; J7120